=== PATIENT | male | born 1995 | race Caucasian/White ===

== ENCOUNTER 2017-06-05 20:02 | Emergency (ER) | payer OTHER ==
[~2017-06-05] VITALS: Ht 180.3 cm; Wt 105.7 kg
[2017-06-05] MEDS ORDERED: GUAN1TAB22 PO (20:31)
[2017-06-05] MEDS ORDERED: GABA-533 PO (20:31)
[2017-06-05] MEDS ORDERED: BENZ1TAB10 PO (20:31)
[2017-06-05] MEDS ORDERED: LEVE500T53 PO (20:31)
[2017-06-05] MEDS ORDERED: QUET200T PO (20:31)
[2017-06-05] MEDS ORDERED: METF500T4 PO (20:31)
[2017-06-05] MEDS ORDERED: TOPI25 PO (20:31)
[2017-06-05 21:57] LABS: BASOPHILS % (AUTO) 0.4 % (0.0-2.0); EOSINOPHILS % (AUTO) 1.1 % (1.0-6.0); HEMATOCRIT 43.3 % (41-53); HEMOGLOBIN 14.8 g/dL (13.5-17.5); LYMPHOCYTES % (AUTO) 14.9 % (22.0-44.0); MEAN CORPUSCULAR HEMOGLOBIN 25.9 pg (26.0-34.0); MEAN CORPUSCULAR HGB CONC 34.2 G/dL (31.0-37.0); MEAN CORPUSCULAR VOLUME 76 fL (80-100); MONOCYTES # (AUTO) 0.8 K/uL (0.1-1.0); MONOCYTES % (AUTO) 5.8 % (2.0-9.0); NEUTROPHILS # (AUTO) 10.6 K/uL (1.8-7.7); NEUTROPHILS % (AUTO) 77.8 % (40.0-70.0); PLATELET COUNT (AUTO) 205 K/uL (150-450); RED BLOOD CELL COUNT(AUTO) 5.73 MIL/uL (4.50-5.90); RED CELL DISTRIBUTION WIDTH 13.2 % (11.5-14.5)
[2017-06-05 22:19] LABS: ANION GAP 7 mmol/L (8-16); CALCIUM, TOTAL 9.5 mg/dL (8.8-10.5); CARBON DIOXIDE 29 mmol/L (22-29); CHLORIDE 99 mmol/L (98-107); CREATININE 0.76 mg/dL (0.60-1.30); GLOMERULAR FILTR. RATE CALC > 60 mL/min (>60); GLUCOSE,RANDOM 153 mg/dL (70-110); POTASSIUM 3.6 mmol/L (3.5-5.1); SODIUM SERUM 135 mmol/L (136-145); UREA NITROGEN, BLOOD 15 mg/dL (7-18)
[2017-06-05 22:23] LABS: ALANINE AMINOTRANSFERASE 90 U/L (12-78); ALBUMIN 3.9 g/dL (3.4-5.0); ALKALINE PHOSPHATASE 67 U/L (46-116); ASPARTATE AMINOTRANSFERASE 32 U/L (15-37); BILIRUBIN,TOTAL 0.4 mg/dL (0.1-1.0); TOTAL PROTEIN, SERUM 7.8 g/dL (6.4-8.2)
[2017-06-05 22:35] VITALS: BP 127/88
[2017-06-05 22:43] LABS: AMPHET/METH SCREEN,URINE NEGATIVE (NEGATIVE); BARBITURATE SCREEN, URINE NEGATIVE (NEGATIVE); BENZODIAZEPINES SCREEN,URINE NEGATIVE (NEGATIVE); CANNABINOID SCREEN,URINE NEGATIVE (NEGATIVE); COCAINE SCREEN,URINE NEGATIVE (NEGATIVE); METHADONE SCREEN, URINE NEGATIVE (NEGATIVE); OPIATE SCREEN,URINE NEGATIVE (NEGATIVE); PHENCYCLIDINE SCREEN,URINE NEGATIVE (NEGATIVE)
== END 2017-06-06 01:57 | disposition home or self-care (01) ==
LOC: EMS 20:08
DX: R45.1 Restlessness and agitation (principal); E11.9 Type 2 diabetes mellitus without complications; G40.909 Epilepsy, unspecified, not intractable, without status epilepticus
CPT/HCPCS: 36415; 80053; 80307; 85025; 99285; G0480

== ENCOUNTER → 2017-06-09 | Emergency (ER) | payer OTHER ==
[~2017-06-09] VITALS: Ht 182.9 cm; Wt 100.0 kg
[~2017-06-09] MED LIST: BENZ1TAB10 PO; GABA-533 PO; GUAN1TAB22 PO; LEVE500T53 PO; METF500T4 PO; QUET200T PO; TOPI25 PO
[2017-06-09 06:59] LABS: BASOPHILS % (AUTO) 0.5 % (0.0-2.0); EOSINOPHILS % (AUTO) 3.9 % (1.0-6.0); HEMATOCRIT 45.4 % (41-53); HEMOGLOBIN 15.9 g/dL (13.5-17.5); LYMPHOCYTES % (AUTO) 19.4 % (22.0-44.0); MEAN CORPUSCULAR HEMOGLOBIN 26.5 pg (26.0-34.0); MEAN CORPUSCULAR VOLUME 76 fL (80-100); MONOCYTES # (AUTO) 0.7 K/uL (0.1-1.0); MONOCYTES % (AUTO) 7.4 % (2.0-9.0); NEUTROPHILS % (AUTO) 68.8 % (40.0-70.0); PLATELET COUNT (AUTO) 202 K/uL (150-450); RED BLOOD CELL COUNT(AUTO) 5.99 MIL/uL (4.50-5.90); RED CELL DISTRIBUTION WIDTH 13.1 % (11.5-14.5)
[2017-06-09 07:08] LABS: ANION GAP 9 mmol/L (8-16); CALCIUM, TOTAL 9.3 mg/dL (8.8-10.5); CARBON DIOXIDE 27 mmol/L (22-29); CHLORIDE 105 mmol/L (98-107); CREATININE 0.89 mg/dL (0.60-1.30); GLOMERULAR FILTR. RATE CALC > 60 mL/min (>60); GLUCOSE,RANDOM 115 mg/dL (70-110); SODIUM SERUM 141 mmol/L (136-145); UREA NITROGEN, BLOOD 17 mg/dL (7-18)
[2017-06-09 07:13] LABS: ALANINE AMINOTRANSFERASE 121 U/L (12-78); ALBUMIN 3.9 g/dL (3.4-5.0); ALKALINE PHOSPHATASE 65 U/L (46-116); ASPARTATE AMINOTRANSFERASE 46 U/L (15-37); BILIRUBIN,TOTAL 0.4 mg/dL (0.1-1.0); TOTAL PROTEIN, SERUM 7.6 g/dL (6.4-8.2)
[2017-06-09 08:44] VITALS: BP 133/80
[2017-06-09 14:05] LABS: GLUCOSE,POINT OF CARE 123 MG/DL (70-110)
== END | disposition home or self-care (01) ==
LOC: EMS 05:18
DX: F43.20 Adjustment disorder, unspecified (principal); E11.9 Type 2 diabetes mellitus without complications
CPT/HCPCS: 36415; 80053; 82962; 85025; 99284; G0480

== ENCOUNTER 2018-10-12 17:38 | Emergency (ER) | payer OTHER ==
[~2018-10-12] VITALS: Ht 177.8 cm; Wt 68.0 kg
[~2018-10-12 17:38] MED LIST changes: +METF-960 PO; -METF500T4 PO
[2018-10-12] MEDS ORDERED: ACETAMINOPHEN 500 MG TABLET PO ONE (18:30)
[2018-10-12 18:40] LABS: GLUCOSE,POINT OF CARE 98 MG/DL (70-110)
[2018-10-12 19:00] VITALS: BP 134/88
== END 2018-10-12 19:13 | disposition home or self-care (01) ==
LOC: EMS 17:38
DX: S41.151A Open bite of right upper arm, initial encounter (principal); E11.9 Type 2 diabetes mellitus without complications; Z79.84 Long term (current) use of oral hypoglycemic drugs; W50.3XXA Accidental bite by another person, initial encounter; Y93.89 Activity, other specified; Y92.89 Other specified places as the place of occurrence of the external cause; Y99.8 Other external cause status

== ENCOUNTER 2019-07-29 07:22 | Inpatient (IN) | payer MEDICAID, OTHER ==
[~2019-07-29] VITALS: Ht 182.9 cm; Wt 75.0 kg
[~2019-07-29 07:22] MED LIST changes: +GABA-1201 PO; -GABA-533 PO
[2019-07-29] MEDS ORDERED: TRAZ150 PO (07:41)
[2019-07-29 07:49] LABS: GLUCOSE,POINT OF CARE 99 MG/DL (70-110)
[2019-07-29 07:56] LABS: BASOPHILS % (AUTO) 0.3 % (0.0-2.0); EOSINOPHILS % (AUTO) 0.2 % (1.0-6.0); HEMATOCRIT 42.1 % (41-53); HEMOGLOBIN 13.9 g/dL (13.5-17.5); LYMPHOCYTES # (AUTO) 0.8 K/uL (1.0-4.8); MEAN CORPUSCULAR HGB CONC 33.1 G/dL (31.0-37.0); MEAN CORPUSCULAR VOLUME 81 fL (80-100); MONOCYTES # (AUTO) 0.3 K/uL (0.1-1.0); MONOCYTES % (AUTO) 5.2 % (2.0-9.0); NEUTROPHILS # (AUTO) 5.4 K/uL (1.8-7.7); NEUTROPHILS % (AUTO) 82.3 % (40.0-70.0); PLATELET COUNT (AUTO) 145 K/uL (150-450); RED BLOOD CELL COUNT(AUTO) 5.16 MIL/uL (4.50-5.90); RED CELL DISTRIBUTION WIDTH 13.3 % (11.5-14.5)
[2019-07-29 08:06] LABS: ANION GAP 12 mmol/L (8-16); CALCIUM, TOTAL 9.3 mg/dL (8.8-10.5); CARBON DIOXIDE 26 mmol/L (22-29); CHLORIDE 107 mmol/L (98-107); CREATININE 0.77 mg/dL (0.60-1.30); GLOMERULAR FILTR. RATE CALC > 60 mL/min (>60); GLUCOSE,RANDOM 99 mg/dL (70-110); POTASSIUM 4.3 mmol/L (3.5-5.1); SODIUM SERUM 145 mmol/L (136-145); UREA NITROGEN, BLOOD 14 mg/dL (7-18)
[2019-07-29 08:12] LABS: ALANINE AMINOTRANSFERASE 21 U/L (12-78); ALBUMIN 4.2 g/dL (3.4-5.0); ALKALINE PHOSPHATASE 62 U/L (46-116); ASPARTATE AMINOTRANSFERASE 18 U/L (15-37); BILIRUBIN,TOTAL 0.7 mg/dL (0.1-1.0); TOTAL PROTEIN, SERUM 7.8 g/dL (6.4-8.2)
[2019-07-29] MEDS ORDERED: BACITRACIN 0.9 GM PACKET OINTMENT TP ONE (09:45)
[2019-07-29 10:07] LABS: APPEARANCE,URINE CLEAR (CLEAR); BILIRUBIN,URINE NEGATIVE (NEGATIVE); GLUCOSE, URINE (UA) NEGATIVE (NEGATIVE); KETONES,URINE NEGATIVE (NEGATIVE); LEUKOCYTE ESTERASE ,URINE NEGATIVE (NEGATIVE); NITRATE,URINE NEGATIVE (NEGATIVE); OCCULT BLOOD,URINE NEGATIVE (NEGATIVE); PROTEIN,URINE NEGATIVE (NEGATIVE)
[2019-07-29 10:17] LABS: AMPHET/METH SCREEN,URINE NEGATIVE (NEGATIVE); BARBITURATE SCREEN, URINE NEGATIVE (NEGATIVE); BENZODIAZEPINES SCREEN,URINE NEGATIVE (NEGATIVE); CANNABINOID SCREEN,URINE NEGATIVE (NEGATIVE); COCAINE SCREEN,URINE NEGATIVE (NEGATIVE); METHADONE SCREEN, URINE NEGATIVE (NEGATIVE); OPIATE SCREEN,URINE NEGATIVE (NEGATIVE)
[2019-07-29 10:19] LABS: PHENCYCLIDINE SCREEN,URINE NEGATIVE (NEGATIVE)
[2019-07-29] MEDS: HALOPERIDOL 5 MG TABLET PO PRN (13:52)
[2019-07-29] MEDS: LORazepam 2 MG TABLET PO PRN (13:52)
[2019-07-29 13:56] LABS: GLUCOSE,POINT OF CARE 169 MG/DL (70-110)
[2019-07-29] MEDS ORDERED: HALOPERIDOL 5 MG TABLET PO ONE (14:00)
[2019-07-29] MEDS ORDERED: LORazepam 2 MG TABLET PO ONE (14:00)
[2019-07-29] MEDS: DiphenhydrAMINE HCL 25 MG CAPSULE PO ONE ×2 (14:44→15:08)
[2019-07-29 17:51] LABS: GLUCOSE,POINT OF CARE 106 MG/DL (70-110)
[2019-07-29] MEDS: ZOLPIDEM TARTRATE 10 MG TABLET PO PRN (20:30)
[2019-07-30 01:39] LABS: GLUCOSE,POINT OF CARE 118 MG/DL (70-110)
[2019-07-30] MEDS: HALOPERIDOL 5 MG TABLET PO PRN ×3 (01:49→21:26)
[2019-07-30] MEDS: LORazepam 2 MG TABLET PO PRN ×2 (01:49→20:27)
[2019-07-30 07:11] LABS: CHOL/HDL RATIO 1.8 (4.2-7.3); FREE T4 (FREE THYROXINE) 1.28 ng/dL (0.76-1.46); THYROID STIMULATING HORMONE 2.85 uIU/mL (0.36-3.74)
[2019-07-30 07:54] LABS: GLUCOSE,POINT OF CARE 138 MG/DL (70-110)
[2019-07-30] MEDS: ZOLPIDEM TARTRATE 10 MG TABLET PO PRN (20:27)
[2019-07-30] MEDS ORDERED: PETROLATUM,WHITE 28 GM JELLY TP PRN (21:00)
[2019-07-30] MEDS ORDERED: MAGNESIUM HYDROXIDE SUSPENSION 30 ML UDCUP PO PRN (21:00)
[2019-07-30] MEDS ORDERED: ALBUTEROL SULFATE HFA 90 MCG/PUFF 8 GM INHALER IH PRN (21:00)
[2019-07-30] MEDS ORDERED: LOPERAMIDE HCL 2 MG CAPSULE PO PRN (21:00)
[2019-07-30] MEDS ORDERED: BACITRACIN 28.4 GM OINTMENT TP PRN (21:00)
[2019-07-30] MEDS ORDERED: MAG HYDROX/AL HYDROX/SIMETH ES 30 ML SUSPENSION UDCUP PO PRN (21:00)
[2019-07-30] MEDS ORDERED: DOCUSATE SODIUM 100 MG CAPSULE PO PRN (21:00)
[2019-07-30] MEDS ORDERED: IBUPROFEN 600 MG TABLET PO PRN (21:00)
[2019-07-30] MEDS ORDERED: OMEPRAZOLE 20 MG CAPSULE PO PRN (21:00)
[2019-07-30] MEDS ORDERED: BENZOCAINE/MENTHOL LOZENGE MM PRN (21:00)
[2019-07-30] MEDS ORDERED: ONDANSETRON HCL 4 MG TABLET PO PRN (21:00)
[2019-07-30] MEDS ORDERED: ACETAMINOPHEN 325 MG TABLET PO PRN (21:00)
[2019-07-30 21:02] VITALS: BP 146/111
[2019-07-30] MEDS: CloNIDine HCL 0.1 MG TABLET PO PRN (21:26)
[2019-07-30 22:06] VITALS: BP 139/84
[2019-07-31 05:11] VITALS: BP 151/99
[2019-07-31 08:00] VITALS: BP 141/62
[2019-07-31] MEDS: LORazepam 2 MG TABLET PO PRN ×2 (09:06→16:10)
[2019-07-31 16:09] VITALS: BP 159/120
[2019-07-31] MEDS: CloNIDine HCL 0.1 MG TABLET PO PRN (16:10)
[2019-07-31] MEDS: HALOPERIDOL 5 MG TABLET PO PRN (16:10)
[2019-07-31] MEDS ORDERED: GuaiFENesin/D-METHORPHAN [SUGAR-FREE] 200-20MG/10 ML SYRUP UDCUP PO PRN (17:00)
[2019-07-31] MEDS ORDERED: BENZTROPINE MESYLATE 1 MG TABLET PO SCH (17:00)
[2019-07-31 17:10] VITALS: BP 150/101
[2019-07-31] MEDS ORDERED: METOPROLOL TARTRATE 50 MG TABLET PO SCH (17:30)
[2019-07-31] MEDS ORDERED: CloNIDine HCL 0.1 MG TABLET PO ONE (17:30)
[2019-07-31 17:48] VITALS: BP 138/96
[2019-07-31 18:44] VITALS: BP 139/92
== END 2019-07-31 23:29 | disposition short-term general hospital (02) | DRG 750 ==
LOC: EMS 07:28 → AHU 07-30 11:33 → B3A 07-30 16:30
PROVIDERS: ADMIT Psychiatry & Neurology Psychiatry; ATTEND Psychiatry & Neurology Psychiatry
DX: F25.9 Schizoaffective disorder, unspecified (principal); R45.851 Suicidal ideations; E11.9 Type 2 diabetes mellitus without complications; G40.909 Epilepsy, unspecified, not intractable, without status epilepticus; I10 Essential (primary) hypertension; F84.0 Autistic disorder; Z56.0 Unemployment, unspecified; F41.9 Anxiety disorder, unspecified; G47.00 Insomnia, unspecified; K59.00 Constipation, unspecified
CPT/HCPCS: 84439; 84443; G0480

== ENCOUNTER 2019-07-31 19:49 | Inpatient (IN) | payer MEDICAID, OTHER ==
[~2019-07-31] VITALS: Ht 188 cm; Wt 72.0 kg
[~2019-07-31 19:49] MED LIST changes: -TOPI25 PO; +TRAZ150 PO
[2019-07-31] MEDS ORDERED: SODIUM CHLORIDE 0.9% 2,200 ML IV ONE (21:15)
[2019-07-31 21:35] LABS: BASOPHILS % (AUTO) 0.2 % (0.0-2.0); EOSINOPHILS % (AUTO) 0.1 % (1.0-6.0); HEMATOCRIT 49.9 % (41-53); HEMOGLOBIN 16.2 g/dL (13.5-17.5); LYMPHOCYTES # (AUTO) 0.8 K/uL (1.0-4.8); LYMPHOCYTES % (AUTO) 4.9 % (22.0-44.0); MEAN CORPUSCULAR HEMOGLOBIN 26.5 pg (26.0-34.0); MEAN CORPUSCULAR HGB CONC 32.5 G/dL (31.0-37.0); MEAN CORPUSCULAR VOLUME 82 fL (80-100); MONOCYTES # (AUTO) 1.4 K/uL (0.1-1.0); MONOCYTES % (AUTO) 7.9 % (2.0-9.0); NEUTROPHILS # (AUTO) 15.1 K/uL (1.8-7.7); PLATELET COUNT (AUTO) 197 K/uL (150-450); RED BLOOD CELL COUNT(AUTO) 6.13 MIL/uL (4.50-5.90); RED CELL DISTRIBUTION WIDTH 13.3 % (11.5-14.5)
[2019-07-31 21:36] LABS: NEUTROPHILS % (AUTO) 86.9 % (40.0-70.0)
[2019-07-31] MEDS ORDERED: ACETAMINOPHEN 500 MG TABLET PO ONE (21:45)
[2019-07-31] MEDS ORDERED: LORazepam 2 MG/ML VIAL IVP ONE (21:45)
[2019-07-31 21:51] LABS: ANION GAP 9 mmol/L (8-16); CARBON DIOXIDE 28 mmol/L (22-29); CHLORIDE 103 mmol/L (98-107); CREATININE 0.84 mg/dL (0.60-1.30); GLOMERULAR FILTR. RATE CALC > 60 mL/min (>60); GLUCOSE,RANDOM 123 mg/dL (70-110); POTASSIUM 4.3 mmol/L (3.5-5.1); SODIUM SERUM 140 mmol/L (136-145); UREA NITROGEN, BLOOD 20 mg/dL (7-18)
[2019-07-31] MEDS ORDERED: PIPERACILLIN/TAZO 3.375 GM/D5W 50 ML IV ONE (22:00)
[2019-07-31] MEDS ORDERED: VANCOMYCIN HCL 1 GM/D5% WATER 200 ML IV ONE (22:00)
[2019-07-31 22:06] LABS: LACTIC ACID 1.9 mmol/L (0.4-2.0)
[2019-07-31 22:14] LABS: CREATINE KINASE, TOTAL ONLY 105 U/L (39-308)
[2019-07-31] MEDS ORDERED: ACETAMINOPHEN 325 MG RECTAL SUPPOSITORY PR ONE (22:45)
[2019-07-31] MEDS ORDERED: MAGNESIUM HYDROXIDE SUSPENSION 30 ML UDCUP PO PRN (23:30)
[2019-07-31] MEDS ORDERED: ACETAMINOPHEN 325 MG TABLET PO PRN (23:30)
[2019-07-31] MEDS ORDERED: OxyCODONE HCL/ACETAMINOPHEN 5-325 MG TABLET PO PRN ×2 (23:30)
[2019-07-31] MEDS ORDERED: MAGNESIUM SULFATE 2 GM/WATER 50 ML IV PRN (23:30)
[2019-07-31] MEDS ORDERED: 0.9% SODIUM CHLORIDE 10 ML SYRINGE IVP PRN (23:30)
[2019-07-31] MEDS ORDERED: MAGNESIUM SULFATE 4 GM/WATER 100 ML IV PRN (23:30)
[2019-08-01] MEDS: CefTRIAXone 1 GM/DEXTROSE 50 ML IV SCH (00:46)
[2019-08-01 01:28] LABS: APPEARANCE,URINE CLEAR (CLEAR); BILIRUBIN,URINE NEGATIVE (NEGATIVE); GLUCOSE, URINE (UA) NEGATIVE (NEGATIVE); KETONES,URINE TRACE mg/dL (NEGATIVE); LEUKOCYTE ESTERASE ,URINE NEGATIVE (NEGATIVE); NITRATE,URINE NEGATIVE (NEGATIVE); OCCULT BLOOD,URINE SMALL (NEGATIVE); PROTEIN,URINE NEGATIVE (NEGATIVE)
[2019-08-01 01:39] LABS: BACTERIA,URINE Few /HPF (None Seen); WBC,URINE 0-2 /HPF (0-5)
[2019-08-01] MEDS ORDERED: 0.9% SODIUM CHLORIDE 10 ML SYRINGE IVP PRN (03:30)
[2019-08-01] MEDS ORDERED: ACETAMINOPHEN 325 MG TABLET PO PRN (03:30)
[2019-08-01] MEDS: MAGNESIUM OXIDE 400 MG TABLET PO PRN ×3 (03:39→22:46)
[2019-08-01 07:20] LABS: GLUCOSE,POINT OF CARE 122 MG/DL (70-110)
[2019-08-01] MEDS: DOCUSATE SODIUM 100 MG CAPSULE PO SCH ×2 (07:36→20:18)
[2019-08-01] MEDS: FAMOTIDINE 10 MG/ML 2 ML VIAL IVP SCH (07:37)
[2019-08-01] MEDS: SODIUM CHLORIDE 0.9% 1,000 ML IV SCH (07:37)
[2019-08-01 08:45] LABS: BASOPHILS % (AUTO) 0.2 % (0.0-2.0); EOSINOPHILS % (AUTO) 0 % (1.0-6.0); HEMATOCRIT 44.6 % (41-53); LYMPHOCYTES # (AUTO) 1.3 K/uL (1.0-4.8); LYMPHOCYTES % (AUTO) 7.6 % (22.0-44.0); MEAN CORPUSCULAR HEMOGLOBIN 27.2 pg (26.0-34.0); MEAN CORPUSCULAR HGB CONC 33.6 G/dL (31.0-37.0); MEAN CORPUSCULAR VOLUME 81 fL (80-100); MONOCYTES % (AUTO) 5.8 % (2.0-9.0); NEUTROPHILS # (AUTO) 15.2 K/uL (1.8-7.7); PLATELET COUNT (AUTO) 211 K/uL (150-450); RED CELL DISTRIBUTION WIDTH 13.4 % (11.5-14.5)
[2019-08-01 08:47] LABS: NEUTROPHILS % (AUTO) 86.4 % (40.0-70.0)
[2019-08-01 09:24] LABS: ANION GAP 13 mmol/L (8-16); CALCIUM, TOTAL 9.7 mg/dL (8.8-10.5); CARBON DIOXIDE 23 mmol/L (22-29); CHLORIDE 104 mmol/L (98-107); CREATININE 0.65 mg/dL (0.60-1.30); GLOMERULAR FILTR. RATE CALC > 60 mL/min (>60); GLUCOSE,RANDOM 118 mg/dL (70-110); POTASSIUM 3.9 mmol/L (3.5-5.1); SODIUM SERUM 140 mmol/L (136-145); UREA NITROGEN, BLOOD 13 mg/dL (7-18)
[2019-08-01 11:42] LABS: D-DIMER 0.44 mg/L FEU (0.00-0.50)
[2019-08-01 11:54] LABS: C-REACTIVE PROTEIN QUANT 5.97 mg/dL (0.00-0.30); FERRITIN 102 ng/mL (26-388); LACTATE DEHYDROGENASE 159 U/L (85-227)
[2019-08-01 13:57] LABS: GLUCOSE,POINT OF CARE 95 MG/DL (70-110)
[2019-08-01] MEDS: ASCORBIC ACID 500 MG TABLET PO SCH ×2 (16:00→20:17)
[2019-08-01] MEDS: AmLODIPine BESYLATE 5 MG TABLET PO SCH (16:03)
[2019-08-01] MEDS: AZITHROMYCIN 500 MG TABLET PO SCH (16:03)
[2019-08-01 17:17] LABS: ABG A-A DIFF O2 20.2 mmHg (10-20.0); ABG BASE EXCESS -0.1 mmol/L (-2.0-3.0); ABG CARBOXYHEMOGLOBIN 0.7 % (0.0-3.0); ABG HCO3 24.8 mmol/L (22.0-26.0); ABG METHEMOGLOBIN 0.2 % (0.0-1.5); ABG OXYGEN CONTENT 20.8 mL/dL (15.0-23.0); ABG OXYGEN SATURATION 96.7 % (95.0-98.0); ABG OXYHEMOGLOBIN 95.8 % (94.0-100.0); ABG PCO2 36 mmHg (35-45); ABG PH 7.443 (7.350-7.450); ABG TOTAL HEMOGLOBIN 15.4 G/dL (12.0-18.0); PO2, ARTERIAL BG 86.5 mmHg (80.0-100.0); SOURCE, BLOOD GAS ARTERIAL; TEMPERATURE, FAHRENHEIT, BG 98.6 FAHREN (96.0-98.6)
[2019-08-01 17:18] LABS: O2 DEVICE,BLOOD GAS ROOM AIR (ROOM AIR); SITE, BLOOD GAS RT RADIAL
[2019-08-01 18:20] VITALS: BP 148/96
[2019-08-01] MEDS: ZINC SULFATE 220 MG CAPSULE PO SCH (20:14)
[2019-08-01 20:16] VITALS: BP 150/86
[2019-08-02] MEDS: SODIUM CHLORIDE 0.9% 1,000 ML IV SCH ×2 (00:01→10:57)
[2019-08-02] MEDS: CefTRIAXone 1 GM/DEXTROSE 50 ML IV SCH (00:03)
[2019-08-02 00:32] VITALS: BP 111/88
[2019-08-02 03:11] LABS: INFLUENZA TYPE A NEGATIVE FOR TYPE A (NEGATIVE)
[2019-08-02 03:12] LABS: INFLUENZA TYPE B NEGATIVE FOR TYPE B (NEGATIVE)
[2019-08-02 03:20] LABS: GLUCOMETER DEV NAME(LOC) 5S.1; GLUCOSE,POINT OF CARE 122 MG/DL (70-110)
[2019-08-02] MEDS: MAGNESIUM OXIDE 400 MG TABLET PO PRN (04:09)
[2019-08-02 04:10] VITALS: BP 150/95
[2019-08-02 05:45] LABS: AMPHET/METH SCREEN,URINE NEGATIVE (NEGATIVE); BARBITURATE SCREEN, URINE NEGATIVE (NEGATIVE); BENZODIAZEPINES SCREEN,URINE NEGATIVE (NEGATIVE); CANNABINOID SCREEN,URINE NEGATIVE (NEGATIVE); COCAINE SCREEN,URINE NEGATIVE (NEGATIVE); METHADONE SCREEN, URINE NEGATIVE (NEGATIVE); OPIATE SCREEN,URINE NEGATIVE (NEGATIVE)
[2019-08-02 05:47] LABS: PHENCYCLIDINE SCREEN,URINE NEGATIVE (NEGATIVE)
[2019-08-02] MEDS: ZINC SULFATE 220 MG CAPSULE PO SCH ×2 (08:25→22:24)
[2019-08-02] MEDS: FAMOTIDINE 10 MG/ML 2 ML VIAL IVP SCH (08:25)
[2019-08-02] MEDS: DOCUSATE SODIUM 100 MG CAPSULE PO SCH ×2 (08:25→22:23)
[2019-08-02] MEDS: AmLODIPine BESYLATE 5 MG TABLET PO SCH (08:26)
[2019-08-02] MEDS: ASCORBIC ACID 500 MG TABLET PO SCH ×3 (08:26→22:24)
[2019-08-02] MEDS: AZITHROMYCIN 500 MG TABLET PO SCH (08:27)
[2019-08-02 09:22] VITALS: BP 151/98
[2019-08-02 11:50] LABS: BASOPHILS % (AUTO) 0.2 % (0.0-2.0); EOSINOPHILS % (AUTO) 0.1 % (1.0-6.0); HEMATOCRIT 44.5 % (41-53); HEMOGLOBIN 14.7 g/dL (13.5-17.5); LYMPHOCYTES # (AUTO) 1.1 K/uL (1.0-4.8); MEAN CORPUSCULAR HEMOGLOBIN 27.1 pg (26.0-34.0); MEAN CORPUSCULAR HGB CONC 33.1 G/dL (31.0-37.0); MEAN CORPUSCULAR VOLUME 82 fL (80-100); MONOCYTES # (AUTO) 0.7 K/uL (0.1-1.0); NEUTROPHILS # (AUTO) 12.1 K/uL (1.8-7.7); NEUTROPHILS % (AUTO) 86.7 % (40.0-70.0); PLATELET COUNT (AUTO) 197 K/uL (150-450); RED BLOOD CELL COUNT(AUTO) 5.45 MIL/uL (4.50-5.90); RED CELL DISTRIBUTION WIDTH 13.4 % (11.5-14.5)
[2019-08-02 15:44] VITALS: BP 151/96
[2019-08-02 23:11] VITALS: BP 149/96
[2019-08-02] MEDS ORDERED: TEMAZEPAM 15 MG CAPSULE PO PRN (23:45)
[2019-08-03] MEDS: CefTRIAXone 1 GM/DEXTROSE 50 ML IV SCH (01:34)
[2019-08-03 06:00] VITALS: BP 106/60
[2019-08-03 07:26] LABS: BASOPHILS % (AUTO) 0.2 % (0.0-2.0); HEMATOCRIT 45.1 % (41-53); LYMPHOCYTES # (AUTO) 2.7 K/uL (1.0-4.8); MEAN CORPUSCULAR HEMOGLOBIN 26.9 pg (26.0-34.0); MEAN CORPUSCULAR HGB CONC 33.3 G/dL (31.0-37.0); MEAN CORPUSCULAR VOLUME 81 fL (80-100); MONOCYTES # (AUTO) 1.1 K/uL (0.1-1.0); MONOCYTES % (AUTO) 8.7 % (2.0-9.0); NEUTROPHILS # (AUTO) 8.9 K/uL (1.8-7.7); NEUTROPHILS % (AUTO) 69.1 % (40.0-70.0); PLATELET COUNT (AUTO) 199 K/uL (150-450); RED BLOOD CELL COUNT(AUTO) 5.57 MIL/uL (4.50-5.90); RED CELL DISTRIBUTION WIDTH 13.4 % (11.5-14.5)
[2019-08-03 07:29] VITALS: BP 153/92
[2019-08-03] MEDS: AmLODIPine BESYLATE 5 MG TABLET PO SCH (09:37)
[2019-08-03] MEDS: ASCORBIC ACID 500 MG TABLET PO SCH ×2 (09:37→15:47)
[2019-08-03] MEDS: AZITHROMYCIN 500 MG TABLET PO SCH (09:37)
[2019-08-03] MEDS: DOCUSATE SODIUM 100 MG CAPSULE PO SCH (09:38)
[2019-08-03] MEDS: ZINC SULFATE 220 MG CAPSULE PO SCH (09:38)
[2019-08-03] MEDS: FAMOTIDINE 10 MG/ML 2 ML VIAL IVP SCH (09:43)
[2019-08-03 12:02] VITALS: BP 142/98
[2019-08-03 15:26] VITALS: BP 143/93
[2019-08-03] MEDS ORDERED: AZIT-104 PO (16:44)
[2019-08-03] MEDS ORDERED: CEPH-582 PO (16:44)
[2019-08-03] MEDS ORDERED: AMLO10TA7 PO (16:45)
[2019-08-06 10:07] LABS: LEGIONELLA PNEUMO AG URINE Negative (Negative); ORGANISM ID Not indicated.; S PNEUMO SOURCE Urine; STREP PNEUMONIAE AG URINE Negative (Negative); STREP.PNEUMO BODY FLUID CULT. Not indicated.
== END 2019-08-03 16:55 | DRG 720 ==
LOC: EMS 19:51 → 5N 23:30 → UNDOADMIN 08-01 → 5S 08-03 11:11
PROVIDERS: ADMIT Internal Medicine; ATTEND Internal Medicine
DX: A41.9 Sepsis, unspecified organism (principal); E83.42 Hypomagnesemia; E11.9 Type 2 diabetes mellitus without complications; F84.0 Autistic disorder; G40.909 Epilepsy, unspecified, not intractable, without status epilepticus; I10 Essential (primary) hypertension; E86.0 Dehydration; R62.50 Unspecified lack of expected normal physiological development in childhood; Z20.828 Contact with and (suspected) exposure to other viral communicable diseases; F41.9 Anxiety disorder, unspecified
CPT/HCPCS: 36600; 80307; 82728; 82805; 83605; 83615; 83735; 85379; 85384; 86140; 87040; 87449; 87635; 87804; 87899; 93005; J0696; J2060; J2543; J3370; J3475; J3490; J7030

== ENCOUNTER 2019-08-03 10:50 | Inpatient (IN) | payer MEDICAID ==
[~2019-08-03] VITALS: Ht 182.9 cm; Wt 74.4 kg
[2019-08-03] MEDS ORDERED: CEPH-582 PO (16:44)
[2019-08-03] MEDS ORDERED: AZIT-104 PO (16:44)
[2019-08-03] MEDS ORDERED: AMLO10TA7 PO (16:45)
[2019-08-03 17:30] VITALS: BP 143/98
[2019-08-03] MEDS: LORazepam 2 MG TABLET PO PRN (20:38)
[2019-08-03] MEDS: ZOLPIDEM TARTRATE 10 MG TABLET PO PRN (21:45)
[2019-08-04] MEDS ORDERED: PNEUMOCOCCAL VACCINE POLYVALENT 0.5 ML VIAL [PPSV23] IM ONE (04:30)
[2019-08-04] MEDS: MetFORMIN HCL 500 MG TABLET PO SCH ×2 (06:12→16:19)
[2019-08-04 06:24] VITALS: BP 138/83
[2019-08-04] MEDS ORDERED: MAG HYDROX/AL HYDROX/SIMETH ES 30 ML SUSPENSION UDCUP PO PRN (08:30)
[2019-08-04] MEDS ORDERED: MAGNESIUM HYDROXIDE SUSPENSION 30 ML UDCUP PO PRN (08:30)
[2019-08-04] MEDS ORDERED: CloNIDine HCL 0.1 MG TABLET PO PRN (08:30)
[2019-08-04] MEDS ORDERED: OMEPRAZOLE 20 MG CAPSULE PO PRN (08:30)
[2019-08-04] MEDS ORDERED: PETROLATUM,WHITE 28 GM JELLY TP PRN (08:30)
[2019-08-04] MEDS ORDERED: BENZOCAINE/MENTHOL LOZENGE MM PRN (08:30)
[2019-08-04] MEDS ORDERED: ACETAMINOPHEN 325 MG TABLET PO PRN (08:30)
[2019-08-04] MEDS ORDERED: ONDANSETRON HCL 4 MG TABLET PO PRN (08:30)
[2019-08-04] MEDS ORDERED: IBUPROFEN 600 MG TABLET PO PRN (08:30)
[2019-08-04] MEDS ORDERED: ALBUTEROL SULFATE HFA 90 MCG/PUFF 8 GM INHALER IH PRN (08:30)
[2019-08-04] MEDS ORDERED: BACITRACIN 28.4 GM OINTMENT TP PRN (08:30)
[2019-08-04] MEDS ORDERED: DOCUSATE SODIUM 100 MG CAPSULE PO PRN (08:30)
[2019-08-04] MEDS ORDERED: LOPERAMIDE HCL 2 MG CAPSULE PO PRN (08:30)
[2019-08-04 08:31] VITALS: BP 136/100
[2019-08-04] MEDS: AmLODIPine BESYLATE 10 MG TABLET PO SCH (08:43)
[2019-08-04] MEDS: GuanFACINE HCL 1 MG TABLET PO SCH (08:43)
[2019-08-04] MEDS: BENZTROPINE MESYLATE 1 MG TABLET PO SCH (08:43)
[2019-08-04] MEDS: CEPHALEXIN MONOHYDRATE 500 MG CAPSULE PO SCH ×3 (08:43→16:19)
[2019-08-04] MEDS: LevETIRAcetam 500 MG TABLET PO SCH ×2 (08:43→16:19)
[2019-08-04] MEDS ORDERED: AZITHROMYCIN 500 MG TABLET PO SCH (09:00)
[2019-08-04 16:09] VITALS: BP 137/90
[2019-08-04] MEDS: LORazepam 2 MG TABLET PO PRN (17:07)
[2019-08-05 00:15] VITALS: BP 120/86
[2019-08-05] MEDS: ZOLPIDEM TARTRATE 10 MG TABLET PO PRN ×2 (00:18→20:35)
[2019-08-05] MEDS: MetFORMIN HCL 500 MG TABLET PO SCH ×2 (06:49→16:53)
[2019-08-05 08:08] VITALS: BP 141/76
[2019-08-05 08:16] LABS: BASOPHILS % (AUTO) 0.6 % (0.0-2.0); EOSINOPHILS % (AUTO) 2.8 % (1.0-6.0); HEMATOCRIT 43.3 % (41-53); HEMOGLOBIN 14.5 g/dL (13.5-17.5); LYMPHOCYTES # (AUTO) 2.1 K/uL (1.0-4.8); LYMPHOCYTES % (AUTO) 26.7 % (22.0-44.0); MEAN CORPUSCULAR HEMOGLOBIN 27.3 pg (26.0-34.0); MEAN CORPUSCULAR HGB CONC 33.5 G/dL (31.0-37.0); MEAN CORPUSCULAR VOLUME 82 fL (80-100); MONOCYTES # (AUTO) 0.7 K/uL (0.1-1.0); MONOCYTES % (AUTO) 9.2 % (2.0-9.0); NEUTROPHILS # (AUTO) 4.9 K/uL (1.8-7.7); NEUTROPHILS % (AUTO) 60.7 % (40.0-70.0); PLATELET COUNT (AUTO) 195 K/uL (150-450); RED CELL DISTRIBUTION WIDTH 13.4 % (11.5-14.5)
[2019-08-05] MEDS: BENZTROPINE MESYLATE 1 MG TABLET PO SCH (08:25)
[2019-08-05] MEDS: LevETIRAcetam 500 MG TABLET PO SCH ×2 (08:25→16:53)
[2019-08-05] MEDS: AmLODIPine BESYLATE 10 MG TABLET PO SCH (08:25)
[2019-08-05] MEDS: LORazepam 2 MG TABLET PO PRN ×2 (08:25→16:53)
[2019-08-05] MEDS: CEPHALEXIN MONOHYDRATE 500 MG CAPSULE PO SCH ×3 (08:25→16:53)
[2019-08-05] MEDS: GuanFACINE HCL 1 MG TABLET PO SCH (08:25)
[2019-08-05 08:42] LABS: ALANINE AMINOTRANSFERASE 38 U/L (12-78); ALBUMIN 3.6 g/dL (3.4-5.0); ALKALINE PHOSPHATASE 59 U/L (46-116); ANION GAP 9 mmol/L (8-16); ASPARTATE AMINOTRANSFERASE 34 U/L (15-37); BILIRUBIN,TOTAL 0.3 mg/dL (0.1-1.0); CALCIUM, TOTAL 9.2 mg/dL (8.8-10.5); CARBON DIOXIDE 28 mmol/L (22-29); CHLORIDE 104 mmol/L (98-107); CHOLESTEROL 91 mg/dL (131-200); CREATININE 0.62 mg/dL (0.60-1.30); GLOMERULAR FILTR. RATE CALC > 60 mL/min (>60); GLUCOSE,RANDOM 92 mg/dL (70-110); HDL CHOLESTEROL 45 mg/dL (40-60); LDL CHOL (CALC.) 35 mg/dL (0-130); POTASSIUM 4.1 mmol/L (3.5-5.1); SODIUM SERUM 141 mmol/L (136-145); THYROID STIMULATING HORMONE 1.01 uIU/mL (0.36-3.74); TOTAL PROTEIN, SERUM 7.3 g/dL (6.4-8.2); TRIGLYCERIDES 54 mg/dL (15-150); UREA NITROGEN, BLOOD 16 mg/dL (7-18)
[2019-08-05 08:52] LABS: HEMOGLOBIN A1C 5.2 % (3.8-5.6)
[2019-08-05 16:10] VITALS: BP 135/85
[2019-08-06 05:57] VITALS: BP 132/85
[2019-08-06] MEDS: MetFORMIN HCL 500 MG TABLET PO SCH ×2 (06:31→18:40)
[2019-08-06] MEDS: AmLODIPine BESYLATE 10 MG TABLET PO SCH (08:28)
[2019-08-06] MEDS: LevETIRAcetam 500 MG TABLET PO SCH ×2 (08:28→18:40)
[2019-08-06] MEDS: GuanFACINE HCL 1 MG TABLET PO SCH (08:28)
[2019-08-06] MEDS: BENZTROPINE MESYLATE 1 MG TABLET PO SCH (08:28)
[2019-08-06] MEDS: CEPHALEXIN MONOHYDRATE 500 MG CAPSULE PO SCH ×3 (08:28→18:40)
[2019-08-06 08:57] VITALS: BP 134/86
[2019-08-06 17:34] VITALS: BP 116/78
[2019-08-06] MEDS: ZOLPIDEM TARTRATE 10 MG TABLET PO PRN (21:13)
[2019-08-07] MEDS: LORazepam 2 MG TABLET PO PRN ×2 (00:03→15:59)
[2019-08-07 00:17] VITALS: BP 119/79
[2019-08-07] MEDS: MetFORMIN HCL 500 MG TABLET PO SCH ×2 (06:40→15:59)
[2019-08-07] MEDS: LevETIRAcetam 500 MG TABLET PO SCH ×2 (08:43→15:59)
[2019-08-07] MEDS: AmLODIPine BESYLATE 10 MG TABLET PO SCH (08:43)
[2019-08-07] MEDS: CEPHALEXIN MONOHYDRATE 500 MG CAPSULE PO SCH ×3 (08:43→15:59)
[2019-08-07] MEDS: GuanFACINE HCL 1 MG TABLET PO SCH (08:43)
[2019-08-07] MEDS: BENZTROPINE MESYLATE 1 MG TABLET PO SCH (08:44)
[2019-08-07 08:56] VITALS: BP 146/56
[2019-08-07 16:52] VITALS: BP 118/79
[2019-08-07] MEDS: ZOLPIDEM TARTRATE 10 MG TABLET PO PRN (21:03)
[2019-08-08 00:19] VITALS: BP 126/85
[2019-08-08] MEDS: ZOLPIDEM TARTRATE 10 MG TABLET PO PRN ×2 (00:20→20:40)
[2019-08-08] MEDS: BENZTROPINE MESYLATE 1 MG TABLET PO SCH (00:20)
[2019-08-08] MEDS: LORazepam 2 MG TABLET PO PRN ×2 (00:27→08:06)
[2019-08-08 01:35] VITALS: BP 136/88
[2019-08-08] MEDS: MetFORMIN HCL 500 MG TABLET PO SCH ×2 (06:49→16:36)
[2019-08-08] MEDS: CEPHALEXIN MONOHYDRATE 500 MG CAPSULE PO SCH ×3 (08:05→16:36)
[2019-08-08] MEDS: GuanFACINE HCL 1 MG TABLET PO SCH (08:05)
[2019-08-08] MEDS: AmLODIPine BESYLATE 10 MG TABLET PO SCH (08:05)
[2019-08-08] MEDS: LevETIRAcetam 500 MG TABLET PO SCH ×2 (08:05→16:36)
[2019-08-08 08:43] VITALS: BP 129/80
[2019-08-08 16:45] VITALS: BP 119/61
[2019-08-09] MEDS: HALOPERIDOL 5 MG TABLET PO PRN (00:17)
[2019-08-09] MEDS: LORazepam 2 MG TABLET PO PRN ×2 (00:17→16:23)
[2019-08-09 01:11] VITALS: BP 133/74
[2019-08-09] MEDS: MetFORMIN HCL 500 MG TABLET PO SCH ×2 (06:12→16:23)
[2019-08-09 08:05] VITALS: BP 129/71
[2019-08-09] MEDS: AmLODIPine BESYLATE 10 MG TABLET PO SCH (08:10)
[2019-08-09] MEDS: GuanFACINE HCL 1 MG TABLET PO SCH (08:11)
[2019-08-09] MEDS: BENZTROPINE MESYLATE 1 MG TABLET PO SCH (08:11)
[2019-08-09] MEDS: LevETIRAcetam 500 MG TABLET PO SCH ×2 (08:11→16:23)
[2019-08-09] MEDS: OLANZapine 5 MG TABLET PO SCH (08:11)
[2019-08-09 16:39] VITALS: BP 132/82
[2019-08-09] MEDS: ZOLPIDEM TARTRATE 10 MG TABLET PO PRN (20:18)
[2019-08-10] VITALS: BP 130/85
[2019-08-10] MEDS: LORazepam 2 MG TABLET PO PRN (02:08)
[2019-08-10] MEDS: HALOPERIDOL 5 MG TABLET PO PRN (02:08)
[2019-08-10] MEDS: MetFORMIN HCL 500 MG TABLET PO SCH ×2 (06:46→17:06)
[2019-08-10 08:05] VITALS: BP 127/72
[2019-08-10] MEDS: AmLODIPine BESYLATE 10 MG TABLET PO SCH (08:14)
[2019-08-10] MEDS: BENZTROPINE MESYLATE 1 MG TABLET PO SCH (08:14)
[2019-08-10] MEDS: GuanFACINE HCL 1 MG TABLET PO SCH (08:14)
[2019-08-10] MEDS: OLANZapine 5 MG TABLET PO SCH (08:14)
[2019-08-10] MEDS: LevETIRAcetam 500 MG TABLET PO SCH ×2 (08:14→17:06)
[2019-08-10 17:48] VITALS: BP 129/86
[2019-08-10] MEDS: ZOLPIDEM TARTRATE 10 MG TABLET PO PRN (20:27)
[2019-08-10] MEDS ORDERED: BENZ1TAB10 PO (21:54)
[2019-08-10] MEDS ORDERED: OLAN5TAB2 PO (21:54)
[2019-08-11 00:09] VITALS: BP 135/92
[2019-08-11] MEDS: LORazepam 2 MG TABLET PO PRN (00:17)
[2019-08-11] MEDS: MetFORMIN HCL 500 MG TABLET PO SCH (06:36)
[2019-08-11] MEDS: LevETIRAcetam 500 MG TABLET PO SCH (08:18)
[2019-08-11] MEDS: BENZTROPINE MESYLATE 1 MG TABLET PO SCH (08:18)
[2019-08-11] MEDS: AmLODIPine BESYLATE 10 MG TABLET PO SCH (08:18)
[2019-08-11] MEDS: GuanFACINE HCL 1 MG TABLET PO SCH (08:18)
[2019-08-11] MEDS: OLANZapine 5 MG TABLET PO SCH (08:18)
[2019-08-11 08:23] VITALS: BP 134/80
[2019-08-11] MEDS ORDERED: BENZ1TAB10 PO (11:07)
[2019-08-11] MEDS ORDERED: OLAN5TAB27 PO (11:07)
[2019-08-11] MEDS ORDERED: GUAN1TAB2 PO (11:07)
== END 2019-08-11 13:05 | disposition home or self-care (01) | DRG 750 ==
LOC: B3A 17:15 → B2S 08-04 20:15
PROVIDERS: ADMIT Psychiatry & Neurology Psychiatry; ATTEND Psychiatry & Neurology Psychiatry
DX: F25.1 Schizoaffective disorder, depressive type (principal); G40.909 Epilepsy, unspecified, not intractable, without status epilepticus; F84.0 Autistic disorder; R45.87 Impulsiveness; Z59.0 Homelessness; Z79.899 Other long term (current) drug therapy; Z87.891 Personal history of nicotine dependence
CPT/HCPCS: 83036; 84439; 84443; 87081; 90732

== ENCOUNTER 2019-09-29 03:31 | Emergency (ER) | payer MEDICAID, OTHER ==
[~2019-09-29] VITALS: Ht 180.3 cm; Wt 85.0 kg
[~2019-09-29 03:31] MED LIST changes: +AMLO10TA7 PO; -GABA-1201 PO; +GUAN1TAB2 PO; -GUAN1TAB22 PO; +OLAN5TAB27 PO; -QUET200T PO; -TRAZ150 PO
[2019-09-29 04:30] LABS: GLUCOSE,POINT OF CARE 109 MG/DL (70-110)
[2019-09-29 04:52] LABS: BASOPHILS % (AUTO) 0.4 % (0.0-2.0); EOSINOPHILS % (AUTO) 0.6 % (1.0-6.0); HEMATOCRIT 48.2 % (41-53); LYMPHOCYTES # (AUTO) 1.7 K/uL (1.0-4.8); LYMPHOCYTES % (AUTO) 16.5 % (22.0-44.0); MEAN CORPUSCULAR HGB CONC 33.3 G/dL (31.0-37.0); MEAN CORPUSCULAR VOLUME 81 fL (80-100); MONOCYTES # (AUTO) 0.9 K/uL (0.1-1.0); MONOCYTES % (AUTO) 8.4 % (2.0-9.0); NEUTROPHILS # (AUTO) 7.7 K/uL (1.8-7.7); NEUTROPHILS % (AUTO) 74.1 % (40.0-70.0); PLATELET COUNT (AUTO) 171 K/uL (150-450); RED BLOOD CELL COUNT(AUTO) 5.94 MIL/uL (4.50-5.90); RED CELL DISTRIBUTION WIDTH 13.1 % (11.5-14.5)
[2019-09-29 05:06] LABS: ANION GAP 10 mmol/L (8-16); CALCIUM, TOTAL 9.9 mg/dL (8.8-10.5); CARBON DIOXIDE 28 mmol/L (22-29); CHLORIDE 104 mmol/L (98-107); CREATININE 0.77 mg/dL (0.60-1.30); GLOMERULAR FILTR. RATE CALC > 60 mL/min (>60); GLUCOSE,RANDOM 113 mg/dL (70-110); POTASSIUM 3.9 mmol/L (3.5-5.1); SODIUM SERUM 142 mmol/L (136-145); UREA NITROGEN, BLOOD 15 mg/dL (7-18)
[2019-09-29 05:11] LABS: ALANINE AMINOTRANSFERASE 31 U/L (12-78); ALBUMIN 4.5 g/dL (3.4-5.0); ALKALINE PHOSPHATASE 78 U/L (46-116); ASPARTATE AMINOTRANSFERASE 24 U/L (15-37); BILIRUBIN,TOTAL 0.4 mg/dL (0.1-1.0); TOTAL PROTEIN, SERUM 8.8 g/dL (6.4-8.2)
[2019-09-29 05:11] LABS: AMPHET/METH SCREEN,URINE NEGATIVE (NEGATIVE); BARBITURATE SCREEN, URINE NEGATIVE (NEGATIVE); BENZODIAZEPINES SCREEN,URINE NEGATIVE (NEGATIVE); CANNABINOID SCREEN,URINE NEGATIVE (NEGATIVE); COCAINE SCREEN,URINE NEGATIVE (NEGATIVE); METHADONE SCREEN, URINE NEGATIVE (NEGATIVE); OPIATE SCREEN,URINE NEGATIVE (NEGATIVE)
[2019-09-29] MEDS ORDERED: GABA-1201 PO (05:12)
[2019-09-29] MEDS ORDERED: LORA-1000 PO (05:12)
[2019-09-29] MEDS ORDERED: IBUP-2070 PO (05:12)
[2019-09-29] MEDS ORDERED: HALO10 PO (05:12)
[2019-09-29 05:14] LABS: PHENCYCLIDINE SCREEN,URINE NEGATIVE (NEGATIVE)
[2019-09-29 11:10] VITALS: BP 142/80
== END 2019-09-29 11:11 | disposition home or self-care (01) ==
LOC: EMS 03:31
DX: F20.9 Schizophrenia, unspecified (principal); F91.1 Conduct disorder, childhood-onset type; R62.50 Unspecified lack of expected normal physiological development in childhood; E11.9 Type 2 diabetes mellitus without complications; Z79.84 Long term (current) use of oral hypoglycemic drugs
CPT/HCPCS: 36415; 80053; 80307; 82962; 85025; 99285; G0480

== ENCOUNTER 2020-01-14 03:06 | Emergency (ER) | payer OTHER ==
[~2020-01-14] VITALS: Ht 185.4 cm; Wt 177.1 kg
[~2020-01-14 03:06] MED LIST changes: +AMLO-258 PO; -AMLO10TA7 PO; +GABA-1201 PO; +HALO10 PO; +IBUP-2070 PO; +LORA-1000 PO
[2020-01-14] MEDS ORDERED: DiphenhydrAMINE HCL 25 MG CAPSULE PO ONE (04:00)
[2020-01-14 04:40] VITALS: BP 143/90
== END 2020-01-14 05:15 | disposition home or self-care (01) ==
LOC: EMS 03:06
DX: G47.00 Insomnia, unspecified (principal); E11.9 Type 2 diabetes mellitus without complications; Z79.84 Long term (current) use of oral hypoglycemic drugs

== ENCOUNTER 2020-01-19 01:03 | Emergency (ER) | payer OTHER ==
[~2020-01-19] VITALS: Ht 175.3 cm; Wt 81.8 kg
[2020-01-19 01:18] VITALS: BP 150/75
[2020-01-19 01:29] LABS: GLUCOSE,POINT OF CARE 114 MG/DL (70-110)
[2020-01-19 01:40] LABS: BASOPHILS % (AUTO) 0.4 % (0.0-2.0); EOSINOPHILS % (AUTO) 1.9 % (1.0-6.0); HEMOGLOBIN 16.5 g/dL (13.5-17.5); LYMPHOCYTES # (AUTO) 2.1 K/uL (1.0-4.8); LYMPHOCYTES % (AUTO) 21.5 % (22.0-44.0); MEAN CORPUSCULAR HEMOGLOBIN 27.4 pg (26.0-34.0); MEAN CORPUSCULAR HGB CONC 34.4 G/dL (31.0-37.0); MEAN CORPUSCULAR VOLUME 80 fL (80-100); MONOCYTES # (AUTO) 0.6 K/uL (0.1-1.0); MONOCYTES % (AUTO) 6.5 % (2.0-9.0); NEUTROPHILS % (AUTO) 69.7 % (40.0-70.0); PLATELET COUNT (AUTO) 200 K/uL (150-450); RED BLOOD CELL COUNT(AUTO) 6.04 MIL/uL (4.50-5.90); RED CELL DISTRIBUTION WIDTH 13.6 % (11.5-14.5)
[2020-01-19] MEDS ORDERED: LORazepam 1 MG TABLET PO ONE (01:45)
[2020-01-19] MEDS ORDERED: HALOPERIDOL 5 MG TABLET PO ONE (01:45)
[2020-01-19 01:50] LABS: ANION GAP 9 mmol/L (8-16); CARBON DIOXIDE 30 mmol/L (22-29); CHLORIDE 106 mmol/L (98-107); CREATININE 0.79 mg/dL (0.60-1.30); GLOMERULAR FILTR. RATE CALC > 60 mL/min (>60); GLUCOSE,RANDOM 121 mg/dL (70-110); POTASSIUM 4.1 mmol/L (3.5-5.1); SODIUM SERUM 145 mmol/L (136-145); UREA NITROGEN, BLOOD 15 mg/dL (7-18)
[2020-01-19 01:55] LABS: AMPHET/METH SCREEN,URINE NEGATIVE (NEGATIVE); BARBITURATE SCREEN, URINE NEGATIVE (NEGATIVE); BENZODIAZEPINES SCREEN,URINE NEGATIVE (NEGATIVE); CANNABINOID SCREEN,URINE NEGATIVE (NEGATIVE); COCAINE SCREEN,URINE NEGATIVE (NEGATIVE); METHADONE SCREEN, URINE NEGATIVE (NEGATIVE); OPIATE SCREEN,URINE NEGATIVE (NEGATIVE)
[2020-01-19 01:56] LABS: PHENCYCLIDINE SCREEN,URINE NEGATIVE (NEGATIVE)
[2020-01-19 01:56] LABS: ALANINE AMINOTRANSFERASE 26 U/L (12-78); ALBUMIN 4.6 g/dL (3.4-5.0); ALKALINE PHOSPHATASE 84 U/L (46-116); ASPARTATE AMINOTRANSFERASE 19 U/L (15-37); BILIRUBIN,TOTAL 0.4 mg/dL (0.1-1.0); TOTAL PROTEIN, SERUM 8.5 g/dL (6.4-8.2)
== END 2020-01-19 03:48 | disposition home or self-care (01) ==
LOC: EMS 01:04
DX: R45.1 Restlessness and agitation (principal); R62.59 Other lack of expected normal physiological development in childhood; Z79.84 Long term (current) use of oral hypoglycemic drugs; Z79.899 Other long term (current) drug therapy; E11.9 Type 2 diabetes mellitus without complications
CPT/HCPCS: 36415; 80053; 80307; 82962; 85025; 99285; G0480